=== PATIENT | female | born 1990 | race Two or more races ===

== ENCOUNTER → 2021-12-06 09:35 | Outpatient (BNVA) | payer OTHER, SELFPAY | PROVIDERS: Visit Provider Internal Medicine | DX: S80.02XA Contusion of left knee, initial encounter (principal); S00.83XA Contusion of other part of head, initial encounter; W00.0XXA Fall on same level due to ice and snow, initial encounter | CPT/HCPCS: 73564; 99203 ==

== ENCOUNTER → 2021-12-09 13:14 | Outpatient (BNVA) | payer OTHER, SELFPAY | PROVIDERS: Visit Provider Physician Assistant Medical | DX: S80.02XA Contusion of left knee, initial encounter (principal); S00.93XA Contusion of unspecified part of head, initial encounter; W18.30XA Fall on same level, unspecified, initial encounter | CPT/HCPCS: 99213 ==